=== PATIENT | male | born 1955 | race Caucasian/White ===

== ENCOUNTER 2018-10-13 20:59 | Observation (INO) | payer OTHER ==
--- NOTE | 2018-10-13 21:14 | EDPHY ---
HPI/HX/ROS/PE/MDM - Data Points Imaging: Discussed imaging studies w/ body recall instructor Radiologist, I viewed and interpreted images myself Narrative: CHIEF COMPLAINT: Chest pain HPI: The patient is a 63 y/o male with a history of an enlarged aorta (3cm), atrioseptal defect, and hypotension complaining of chest pain onset Sunday, 3 days ago. Last February he saw Dr. Trivedi, [facility]cm developer, and was diagnosed with an enlarged aorta per an echocardiogram. His last stress test was over one year ago. On Sunday morning, he developed a dull aching mid sternal chest pain. Over the last several days the pain has progressed to the left side of his chest as well as radiating back to his left shoulder. Starting 30 minutes ago tonight, around 20:50, he was lying on the couch watching TV and started to develop a sharp chest pain. This pain changes with position and is worse when taking a deep breath. No headache, sore throat, shortness of breath, abdominal pain, urinary of bowel complaints, numbness. His father does have significant cardiac history including a CABG. REVIEW OF SYSTEMS: Aside from elements discussed in the HPI, a comprehensive 10 system review of systems is otherwise negative. PMH: Depression, ADD, hypotension, hypercholesteremia, enlarged aorta (close to 3 cm), atrioseptal defect SOCIAL HISTORY: Friend at bedside, lives in [place], employed as a teacher PHYSICAL EXAM: General: Patient is alert, in no acute distress. ENT: Eyes are normal to inspection. ENT inspection normal. Neck: Normal inspection. Full range of motion. Respiratory: No respiratory distress. Breath sounds normal bilaterally. Cardiovascular: Regular rate and rhythm. Strong peripheral pulses. Normal cap refill. Abdomen: The abdomen is nontender to palpation. There are no peritoneal signs. There are normal bowel sounds. Back: Normal to inspection. No tenderness to palpation. Skin: Normal color. No rash. Warm and dry. Extremities: Normal appearance. Full range of motion. Neuro: Oriented x3. Normal motor function. Normal sensory function. (Oskar Cortez) ED Course: 2113: I reviewed patient's EKG which is normal. 2129: Patient is still having chest pain; 0.4mg SL Nitroglycerin administered. 2130: Patient's troponin is negative. Chest CT, chest x-ray, and additional laboratory studies still pending. 2154: I reviewed patient's chest x-ray which reveals an enlarged mediastinal aorta; radiologist reading still pending. 2199: I reviewed patient's chest CT; radiologist reading still pending. 2230: I spoke with Dr. Palafox, [facility] developer, regarding patient's chest CT. There are no acute findings. Patient does have an aortic aneurysm which was previously diagnosed via the echo. 2231: Reassessed patient and discussed laboratory and imaging findings. I have offered him admission vs. outpatient follow up with a [facility] developer. He would like to proceed with plan for second troponin/ECG and discharge home with outpatient cardiology follow-up if still negative. He understands risks of not being admitted for observation. I have signed patient out to Dr. Christiansen pending re-evaluation. (Oskar Cortez) MDM: 2342: Patient signed over to me at 11:00 p.m. Shift change From Dr. Cortez. Patient signed over to me to go home, pending second ekg, and second trop. Patient is eager to be discharged home. He declined hospitalization declined to be admitted for chest pain evaluation. EKG interpretation by me on record in [facility] system. Impression this is a 2nd EKG time of 2nd EKG 2339, sinus rhythm rate of 69 with no signs of acute ischemia no ST elevation no ST depression no T-wave abnormalities. 0105: Had a long discussion with the patient about his workup here in the emergency room, I have answered all his questions. On review of his cardiovascular risk factors which includes Family history, is dad had a bypass surgery, additionally his risk factors of hyperlipidemia, obesity, and the fact that he is still having left-sided chest discomfort I did make the recommendation that he stays for observation overnight for further cardiovascular risk stratification. And cardiovascular rule out. The patient has agreed for this. His cardiovascular risk factors include obesity, age, hyperlipidemia and family history. Patient agrees for admission overnight. (David Christiansen) - Data Points Imaging Results: Imaging Impressions Chest X-Ray 10/13/18 21:13 Impression: Query chronic airways disease with no superimposed acute abnormality identified. Chest/Thorax CTA 10/13/18 21:33 Impression: 1. Aneurysmal dilatation of the ascending aorta estimated at 4.5 cm. There is no dissection or evidence for aneurysmal leaking. Comparison with prior studies if available would be helpful. 2. Negative for pulmonary embolic disease. 3. Rounded area involving the upper pole of the left kidney is incompletely evaluated on this study and is probably a simple cyst. 4. See above report for additional findings. Results called and discussed with Oskar Cortez MD on 10/13/2018 22:28. Laboratory Results: Laboratory Results 10/13/18 21:20 10/13/18 21:20 10/13/18 10/13/18 10/13/18 23:44 21:32 21:21 WBC RBC Hgb POC Hgb 16.7 gm/dL gm/dL (13.7-17.5) Hct POC Hct 49 % % (40-51) MCV MCH MCHC RDW Plt Count MPV Neut % (Auto) Lymph % (Auto) Simpson % (Auto) Eos % (Auto) Baso % (Auto) Nucleat RBC Rel Count Absolute Neuts (auto) Absolute Lymphs (auto) Absolute Monos (auto) Absolute Eos (auto) Absolute Basos (auto) Absolute Nucleated RBC Immature Gran % Seg Neutrophils % Band Neutrophils % Lymphocytes % Monocytes % Eosinophils % Basophils % Metamyelocytes % Myelocytes % Promyelocytes % Blast Cells % Immature Gran # Absolute Seg Neuts Absolute Band Neuts Absolute Lymphocytes Absolute Monocytes Absolute Eosinophils Absolute Basophils Absolute Metamyelocyte Absolute Myelocytes Absolute Promyelocytes Absolute Plasma Cells Nucleated RBCs RBC/WBC/PLT Morphology Absolute Blast Cells Plasma Cells % Platelet Estimate POC Sodium 142 mEq/L mEq/L (135-145) Sodium POC Potassium 3.8 mEq/L mEq/L (3.3-5.0) Potassium POC Chloride 106 mEq/L mEq/L (97-110) Chloride Carbon Dioxide Anion Gap POC BUN 21 mg/dL mg/dL (7-23) BUN Creatinine POC Creatinine 1.2 mg/dL mg/dL (0.7-1.3) Estimated GFR Glucose POC Glucose 93 mg/dL mg/dL (70-100) Calcium POC Troponin I 0.00 ng/mL ng/mL 0.00 ng/mL ng/mL (0.00-0.08) (0.00-0.08) 10/13/18 10/13/18 21:20 21:20 WBC 10.78 10^3/uL H 10^3/uL (3.80-9.50) RBC 5.64 10^6/uL 10^6/uL (4.40-6.38) Hgb 15.8 g/dL g/dL (13.7-17.5) POC Hgb Hct 46.6 % % (40.0-51.0) POC Hct MCV 82.6 fL fL (81.5-99.8) MCH 28.0 pg pg (27.9-34.1) MCHC 33.9 g/dL g/dL (32.4-36.7) RDW 14.2 % % (11.5-15.2) Plt Count 312 10^3/uL 10^3/uL (150-400) MPV 10.3 fL fL (8.7-11.7) Neut % (Auto) Not Reported Lymph % (Auto) Not Reported Simpson % (Auto) Not Reported Eos % (Auto) Not Reported Baso % (Auto) Not Reported Nucleat RBC Rel Count Not Reported Absolute Neuts (auto) Not Reported Absolute Lymphs (auto) Not Reported Absolute Monos (auto) Not Reported Absolute Eos (auto) Not Reported Absolute Basos (auto) Not Reported Absolute Nucleated RBC Not Reported Immature Gran % Not Reported Seg Neutrophils % 68.0 % % Band Neutrophils % 0.0 % % Lymphocytes % 22.0 % % Monocytes % 5.0 % % Eosinophils % 3.0 % % Basophils % 2.0 % % Metamyelocytes % 0.0 % % Myelocytes % 0.0 % % Promyelocytes % 0.0 % % Blast Cells % 0.0 % % Immature Gran # Not Reported Absolute Seg Neuts 7.33 10^3/uL H 10^3/uL (1.70-6.50) Absolute Band Neuts 0.00 10^3/uL 10^3/uL (0.00-0.70) Absolute Lymphocytes 2.37 10^3/uL 10^3/uL (1.00-3.00) Absolute Monocytes 0.54 10^3/uL 10^3/uL (0.30-0.80) Absolute Eosinophils 0.32 10^3/uL 10^3/uL (0.03-0.40) Absolute Basophils 0.22 10^3/uL H 10^3/uL (0.02-0.10) Absolute Metamyelocyte 0.00 10^3/mL 10^3/mL (0.00-0.00) Absolute Myelocytes 0.00 10^3/mL 10^3/mL (0.00-0.00) Absolute Promyelocytes 0.00 10^3/uL 10^3/uL (0.00-0.00) Absolute Plasma Cells 0.00 10^3/uL 10^3/uL (0.00-0.00) Nucleated RBCs 0 /100 WBC /100 WBC (0-0) RBC/WBC/PLT Morphology NORMAL (NORMAL) Absolute Blast Cells 0.00 10^3/uL 10^3/uL (0.00-0.00) Plasma Cells % 0.0 % % Platelet Estimate ADEQUATE (ADEQ) POC Sodium Sodium 140 mEq/L mEq/L (135-145) POC Potassium Potassium 4.3 mEq/L mEq/L (3.3-5.0) POC Chloride Chloride 106 mEq/L mEq/L (97-110) Carbon Dioxide 27 mEq/l mEq/l (22-31) Anion Gap 7 mEq/L mEq/L (6-14) POC BUN BUN 20 mg/dL mg/dL (7-23) Creatinine 1.2 mg/dL mg/dL (0.7-1.3) POC Creatinine Estimated GFR > 60 Glucose 95 mg/dL mg/dL (70-100) POC Glucose Calcium 9.9 mg/dL mg/dL (8.5-10.4) POC Troponin I Medications Given: Discontinued Medications Ketorolac Tromethamine (Toradol) 30 mg IVP EDNOW ONE Stop: 10/13/18 23:17 Last Admin: 10/13/18 23:18 Dose: 30 mg Nitroglycerin (Nitrostat) 0.4 mg SL EDNOW ONE Stop: 10/13/18 21:23 Last Admin: 10/13/18 21:25 Dose: 0.4 mg Point of Care Test Results: Chemistry 10/13/18 10/13/18 10/13/18 23:44 21:32 21:21 POC Sodium 142 mEq/L mEq/L (135-145) POC Potassium 3.8 mEq/L mEq/L (3.3-5.0) POC Chloride 106 mEq/L mEq/L (97-110) POC BUN 21 mg/dL mg/dL (7-23) POC Creatinine 1.2 mg/dL mg/dL (0.7-1.3) POC Glucose 93 mg/dL mg/dL (70-100) POC Troponin I 0.00 ng/mL ng/mL 0.00 ng/mL ng/mL (0.00-0.08) (0.00-0.08) ISTAT H&H 10/13/18 21:32 POC Hgb 16.7 gm/dL gm/dL (13.7-17.5) POC Hct 49 % % (40-51) General Time Seen by Provider: 10/13/18 21:12 Initial Vital Signs: Initial Vital Signs Temperature (C) 36.7 C 10/13/18 21:04 Heart Rate 87 10/13/18 21:04 Respiratory Rate 18 10/13/18 21:04 Blood Pressure 155/92 H 10/13/18 21:04 O2 Sat (%) 95 10/13/18 21:04 O2 Delivery Mode Room Air Allergies/Adverse Reactions: Penicillins Allergy (Verified 10/14/18 10:01) Rash Home Medications: Medication Instructions Recorded Amphet Asp and D/Amphet [Adderall 10 mg PO DAILY14 PRN 10/13/18 10 MG (*)] Bupropion HCl [Wellbutrin Xl] 450 mg PO DAILY 10/13/18 Desvenlafaxine [Desvenlafaxine ER] 50 mg PO DAILY 10/13/18 Mirtazapine [Remeron] 60 mg PO HS 10/13/18 Niacin ER [Niaspan 1000 mg (*)] 1,000 mg PO HS 10/13/18 Pravastatin Sodium 20 mg PO HS 10/13/18 Sodium Bicarbonate [Na Bicarb] 650 mg PO DAILY 10/13/18 Aspirin [Aspirin 325 mg (*)] 325 mg PO HS 10/14/18 Dextroamphetamine/Amphetamine 30 mg PO DAILY 10/14/18 [Adderall Xr 30 mg Capsule] Fluticasone Nasal [Flonase Nasal 1 sprays NASAL HS 10/14/18 [place]] Multivitamins [Multivitamin (*)] 1 each PO DAILY 10/14/18 Departure - Departure Disposition: [facility] Inpatient Acute Clinical Impression: Chest pain Qualifiers: Chest pain type: chest pain on breathing Qualified Code(s): R07.1 - Chest pain on breathing Condition: Good Report Scribed for: Oskar M Whitling Report Scribed by: Ying Marcus Date of Report: 10/13/18 Time of Report: 21:14 Physician Review and Approval Statement: Portions of this note were transcribed by an ED scribe. I personally performed the history, physical exam, and medical decision making; and confirm the accuracy of the information in the transcribed note.
[2018-10-13] MEDS ORDERED: NITROGLYCERIN 0.4 MG BTL SL ONE (21:22)
[2018-10-13 21:29] LABS: PLATELET COUNT 312 10^3/uL (150-400)
[2018-10-13] MEDS ORDERED: IOPAMIDOL (ISOVUE 370) 100 ML BTL IV ONE (21:37)
[2018-10-13] MEDS ORDERED: KETOROLAC 30 MG/1 ML SDV IVP ONE (23:16)
[2018-10-14] MEDS ORDERED: ASPIRIN EC 325 MG TAB PO ONE (01:07)
[2018-10-14] MEDS ORDERED: ACETAMINOPHEN 325 MG TAB PO PRN (01:14)
[2018-10-14] MEDS ORDERED: ONDANSETRON DISINTEGRATING 4 MG TAB PO PRN (01:14)
[2018-10-14] MEDS ORDERED: ONDANSETRON 4 MG/2 ML VIAL IVP PRN (01:14)
[2018-10-14] MEDS ORDERED: NITROGLYCERIN 0.4 MG BTL SL PRN (02:27)
--- NOTE | 2018-10-14 02:55 | PDGENHP ---
History and Physical - Chief Complaint Chest pain - History of Present Illness 63 yo obese M w/ KAITLYN and HLD presents with chest pain. The patient reports intermittent left-sided chest pain since Sunday. This became more severe today so he presented to the ED. He describes a sharp, left-sided chest pain that now radiates to his left shoulder. This was moderate earlier but has improved to mild after Toradol. He noted no effect with nitroglycerin. He also notes a positional component to the pain and denies association with exertion or rest. In the ED his evaluation has been thus far unremarkable. He is being admitted for observation and further work-up. Case discussed with ED physician Dr. Hughes; records reviewed and summarized above. History Information - Allergies/Home Medication List Allergies/Adverse Reactions: Penicillins Allergy (Verified 10/13/18 21:08) unk lipid med Allergy (Uncoded 10/13/18 21:08) Home Medications: Adderall 10 MG (*) 10/13/18 [Last Taken Unknown] Desvenlafaxine 10/13/18 [Last Taken Unknown] MIRTAZAPINE 10/13/18 [Last Taken Unknown] Niacin 10/13/18 [Last Taken Unknown] Pravastatin Sodium 10/13/18 [Last Taken Unknown] Sodium Pills 10/13/18 [Last Taken Unknown] Wellbutrin Sr 10/13/18 [Last Taken Unknown] I have personally reviewed and updated: family history, medical history - Past Medical History hyperlipidemia Additional medical history: KAITLYN. Obesity - Surgical History Additional surgical history: Bilateral knee (meniscus) surgeries - Family History Positive for: CAD - Social History Smoking Status: Never smoked Review of Systems Review of Systems: ROS: 10pt was reviewed & negative except for what was stated in HPI & below Physical Exam Physical Exam: Temp Pulse Resp BP Pulse Ox 36.7 C 76 16 103/59 L 93 10/13/18 21:04 10/14/18 00:53 10/14/18 00:53 10/14/18 00:53 10/14/18 00:53 Constitutional: no apparent distress, obese Eyes: PERRL, EOMI Ears, Nose, Mouth, Throat: moist mucous membranes, no oral mucosal ulcers Cardiovascular: regular rate and rhythym, no murmur, rub, or gallop Respiratory: no respiratory distress, clear to auscultation Gastrointestinal: normoactive bowel sounds, soft, non-tender abdomen Skin: warm, normal color Musculoskeletal: full muscle strength, no muscle tenderness Neurologic: AAOx3, CN II-XII Intact Psychiatric: interacting appropriately, not anxious Lab Data & Imaging Review 10/13/18 21:20 10/13/18 21:20 WBC 10.78 10^3/uL (3.80-9.50) H 10/13/18 21:20 RBC 5.64 10^6/uL (4.40-6.38) 10/13/18 21:20 Hgb 15.8 g/dL (13.7-17.5) 10/13/18 21:20 POC Hgb 16.7 gm/dL (13.7-17.5) 10/13/18 21:32 Hct 46.6 % (40.0-51.0) 10/13/18 21:20 POC Hct 49 % (40-51) 10/13/18 21:32 MCV 82.6 fL (81.5-99.8) 10/13/18 21:20 MCH 28.0 pg (27.9-34.1) 10/13/18 21:20 MCHC 33.9 g/dL (32.4-36.7) 10/13/18 21:20 RDW 14.2 % (11.5-15.2) 10/13/18 21:20 Plt Count 312 10^3/uL (150-400) 10/13/18 21:20 MPV 10.3 fL (8.7-11.7) 10/13/18 21:20 Neut % (Auto) Not Reported 10/13/18 21:20 Lymph % (Auto) Not Reported 10/13/18 21:20 [place] % (Auto) Not Reported 10/13/18 21:20 Eos % (Auto) Not Reported 10/13/18 21:20 Baso % (Auto) Not Reported 10/13/18 21:20 Nucleat RBC Rel Count Not Reported 10/13/18 21:20 Absolute Neuts (auto) Not Reported 10/13/18 21:20 Absolute Lymphs (auto) Not Reported 10/13/18 21:20 Absolute Monos (auto) Not Reported 10/13/18 21:20 Absolute Eos (auto) Not Reported 10/13/18 21:20 Absolute Basos (auto) Not Reported 10/13/18 21:20 Absolute Nucleated RBC Not Reported 10/13/18 21:20 Immature Gran % Not Reported 10/13/18 21:20 Seg Neutrophils % 68.0 % 10/13/18 21:20 Band Neutrophils % 0.0 % 10/13/18 21:20 Lymphocytes % 22.0 % 10/13/18 21:20 Monocytes % 5.0 % 10/13/18 21:20 Eosinophils % 3.0 % 10/13/18 21:20 Basophils % 2.0 % 10/13/18 21:20 Metamyelocytes % 0.0 % 10/13/18 21:20 Myelocytes % 0.0 % 10/13/18 21:20 Promyelocytes % 0.0 % 10/13/18 21:20 Blast Cells % 0.0 % 10/13/18 21:20 Immature Gran # Not Reported 10/13/18 21:20 Absolute Seg Neuts 7.33 10^3/uL (1.70-6.50) H 10/13/18 21:20 Absolute Band Neuts 0.00 10^3/uL (0.00-0.70) 10/13/18 21:20 Absolute Lymphocytes 2.37 10^3/uL (1.00-3.00) 10/13/18 21:20 Absolute Monocytes 0.54 10^3/uL (0.30-0.80) 10/13/18 21:20 Absolute Eosinophils 0.32 10^3/uL (0.03-0.40) 10/13/18 21:20 Absolute Basophils 0.22 10^3/uL (0.02-0.10) H 10/13/18 21:20 Absolute Metamyelocyte 0.00 10^3/mL (0.00-0.00) 10/13/18 21:20 Absolute Myelocytes 0.00 10^3/mL (0.00-0.00) 10/13/18 21:20 Absolute Promyelocytes 0.00 10^3/uL (0.00-0.00) 10/13/18 21:20 Absolute Plasma Cells 0.00 10^3/uL (0.00-0.00) 10/13/18 21:20 Nucleated RBCs 0 /100 WBC (0-0) 10/13/18 21:20 RBC/WBC/PLT Morphology NORMAL (NORMAL) 10/13/18 21:20 Absolute Blast Cells 0.00 10^3/uL (0.00-0.00) 10/13/18 21:20 Plasma Cells % 0.0 % 10/13/18 21:20 Platelet Estimate ADEQUATE (ADEQ) 10/13/18 21:20 POC Sodium 142 mEq/L (135-145) 10/13/18 21:32 Sodium 140 mEq/L (135-145) 10/13/18 21:20 POC Potassium 3.8 mEq/L (3.3-5.0) 10/13/18 21:32 Potassium 4.3 mEq/L (3.3-5.0) 10/13/18 21:20 POC Chloride 106 mEq/L (97-110) 10/13/18 21:32 Chloride 106 mEq/L (97-110) 10/13/18 21:20 Carbon Dioxide 27 mEq/l (22-31) 10/13/18 21:20 Anion Gap 7 mEq/L (6-14) 10/13/18 21:20 POC BUN 21 mg/dL (7-23) 10/13/18 21:32 BUN 20 mg/dL (7-23) 10/13/18 21:20 Creatinine 1.2 mg/dL (0.7-1.3) 10/13/18 21:20 POC Creatinine 1.2 mg/dL (0.7-1.3) 10/13/18 21:32 Estimated GFR > 60 10/13/18 21:20 Glucose 95 mg/dL (70-100) 10/13/18 21:20 POC Glucose 93 mg/dL (70-100) 10/13/18 21:32 Calcium 9.9 mg/dL (8.5-10.4) 10/13/18 21:20 POC Troponin I 0.00 ng/mL (0.00-0.08) 10/13/18 23:44 Imaging Review: Imaging Impressions Chest X-Ray 10/13/18 21:13 Impression: Query chronic airways disease with no superimposed acute abnormality identified. Chest/Thorax CTA 10/13/18 21:33 Impression: 1. Aneurysmal dilatation of the ascending aorta estimated at 4.5 cm. There is no dissection or evidence for aneurysmal leaking. Comparison with prior studies if available would be helpful. 2. Negative for pulmonary embolic disease. 3. Rounded area involving the upper pole of the left kidney is incompletely evaluated on this study and is probably a simple cyst. 4. See above report for additional findings. Results called and discussed with Oskar Cortez MD on 10/13/2018 22:28. Visualized and Interpreted EKG results: Yes EKG Interpretation: Positive for: normal sinsus rhythm Assessment & Plan Assessment: 63 yo obese M w/ HLD and KAITLYN presents with chest pain. Plan: 1. Chest pain - Atypical in that pain is exacerbated by positional changes and not associated with exertion. However, noting obesity, HLD, family history, and HEART score of 4, reasonable to admit for further work-up. - Observe in PCU - S/p ASA 325 mg x1 - Monitor on telemetry, trend cardiac enzymes - Per chest pain protocol, will order standard exercise stress test - NTG PRN for chest pain 2. Aneurysmal dilatation of the ascending aorta - Estimated at 4.5 cm on admission CTA. This is a known issue for the patient. His last TTE per Dr. Trivedi's note revealed 4.2 cm dilatation in 2015. 3. HLD - Continue statin pending reconciliation of home meds 4. KAITLYN 5. Obesity Diet - NPO Code - Full Ppx - LMWH Dispo - Admit under observation status
[2018-10-14 04:34] LABS: PLATELET COUNT 271 10^3/uL (150-400)
[2018-10-14] MEDS ORDERED: ENOXAPARIN 40 MG/0.4 ML SYR SC SCH (09:00)
[2018-10-14 11:23] VITALS: BP 124/70
[2018-10-14] MEDS ORDERED: ADDERALL 10 MG TAB PO PRN (11:50)
[2018-10-14] MEDS ORDERED: DEXTROAMPHETAMINE PO SCH (12:00)
[2018-10-14] MEDS ORDERED: DESVENLAFAXINE 50 MG PO SCH (12:00)
[2018-10-14] MEDS ORDERED: buPROPion XL 150 MG TAB PO SCH (12:00)
[2018-10-14] MEDS ORDERED: AMPHETAMINE PO SCH (12:00)
--- NOTE | 2018-10-14 13:17 | CPR ---
DATE OF PROCEDURE: 10/14/2018 PROCEDURE: Treadmill stress test. REASON FOR TEST: 1. Low-level constant chest discomfort. 2. Family history of coronary artery disease. 3. Known dilated aorta. Resting EKG shows a regular sinus rhythm. Heart rate 76. Resting blood pressure 124/84. He reports a continuous chest discomfort of 2/10 on the pain scale. He has no shortness of breath or dizziness . EXERCISE PORTION: He was exercised according to the Des protocol. His chest discomfort remained t he same. There were no significant EKG changes. Peak heart rate 137, peak blood pressure 200/94. M ET level 7.7. He exercised for a total of 6 minutes and 47 seconds reaching his predicted 85% heart rate. RECOVERY: He did spontaneously recover. Resting blood pressure 136/84. Resting heart rate 98. The re were no significant EKG changes. He did have a rare PVC. At this time, he currently is stable. /[id number]/MODL
--- NOTE | 2018-10-14 14:46 | ASMTLACE ---
[facility] Length of stay for Answers: 1 day current admission Acuity / Level of Answers: No Care: Did the patient have an inpatient admission? Comorbidities - select Answers: Other Notes: HLD all that apply # of Emergency department Answers: 1-2 visits in the last 6 months Social determinants Answers: Mental health diagnosis (anxiety, depression, pers onality disorders, etc.) Score: 6 Date Signed: 10/14/2018 02:45 PM Electronically Signed By:Marisa Reyes RN
--- NOTE | 2018-10-14 18:21 | PDDCSUM ---
Discharge Summary Discharge Summary: Date of Admission: 10/13/2018 Date of Discharge: 10/14/2018 Studies: 1. CTA chest 2. Exercise stress test Discharge Diagnoses: 1. Chest pain, non-cardiac (likely costochondritis) 2. Ascending aortic aneurysm 3. Hyperlipidemia 4. KAITLYN 5. Obesity Brief Hospital Course: 63 yo obese M w/ HLD and KAITLYN presented with chest pain. Serial ecg/troponins were negative. An exercise stress test was without ischemic ECG changes or precipitation of symptoms. His telemetry was quiet. Given his past history of aortic aneurysm, a CTA of this chest was obtained which showed ascending aortic dilation of 4.5cm, last noted to be 4.2cm on TTE from 2016. His chest pain did respond very well to anti-inflammatories and he did have some chest wall pain making costochondritis a likely etiology of his symptoms. He was encouraged to trial ibuprofen for 1-2 weeks for this. Medications: Please refer to EMR for complete list. No changes were made this admission. Follow Up Plan: 1. Re-establish with cardiology (Dr Trivedi) for monitoring of ascending aorta aneurysm Physical Exam: Vitals and telemetry reviewed, stable. Alert and oriented. RRR without m/r/g, lungs clear, abdomen soft, no leg edema or JVD. Mild chest wall tenderness.
[2018-10-14] MEDS ORDERED: MIRTAZAPINE 30 MG TAB PO SCH (21:00)
[2018-10-14] MEDS ORDERED: FLUTICASONE NASAL 120 SPRAYS/16 GM MDI EACHNARE SCH (21:00)
[2018-10-14] MEDS ORDERED: PRAVASTATIN SODIUM 20 MG TAB PO SCH (21:00)
[2018-10-14] MEDS ORDERED: NIACIN ER 1000 MG TAB.ER PO SCH (21:00)
[2018-10-14] MEDS ORDERED: ASPIRIN 325 MG TAB PO SCH (21:00)
[2018-10-15] MEDS ORDERED: SODIUM BICARBONATE 650 MG TAB PO SCH (09:00)
--- NOTE | 2018-10-15 15:12 | CPEKG ---
Test Reason : OPEN Blood Pressure : / mmHG Vent. Rate : 083 BPM Atrial Rate : 082 BPM P-R Int : 167 ms QRS Dur : 101 ms QT Int : 368 ms P-R-T Axes : 057 006 046 degrees QTc Int : 433 ms Sinus rhythm Confirmed by Oskar Cortez ([id number]) on 10/15/2018 3:11:53 PM Referred By: Confirmed By:Oskar Cortez
--- NOTE | 2018-10-16 07:06 | CPEKG ---
Test Reason : OPEN Blood Pressure : / mmHG Vent. Rate : 069 BPM Atrial Rate : 069 BPM P-R Int : 177 ms QRS Dur : 095 ms QT Int : 385 ms P-R-T Axes : 046 002 031 degrees QTc Int : 413 ms Sinus rhythm Confirmed by David Christiansen ([id number]) on 10/16/2018 7:05:15 AM Referred By: Confirmed By:David Christiansen
== END 2018-10-14 15:10 | disposition home or self-care (01) ==
LOC: F2W 10-14 02:54
PROVIDERS: ADMIT Student in an Organized Health Care Education/Training Program; ATTEND Student in an Organized Health Care Education/Training Program
DX: R07.9 Chest pain, unspecified (principal); I71.2 Thoracic aortic aneurysm, without rupture; E78.5 Hyperlipidemia, unspecified; G47.33 Obstructive sleep apnea (adult) (pediatric); E66.9 Obesity, unspecified; I95.9 Hypotension, unspecified; E78.00 Pure hypercholesterolemia, unspecified; Z82.49 Family history of ischemic heart disease and other diseases of the circulatory system
CPT/HCPCS: 71046; 71275; 93005; 93017; 96372; 96374; 99285; G0378; 82435-PO; 82565-PO; 82947-PO; 84132-PO; 84295-PO; 84484-PO; 84520-PO; 85014-PO; J1650; J1885; Q9967